=== PATIENT | male | born 1995 | race Caucasian/White ===

== ENCOUNTER 2016-10-12 06:28 | Emergency (ER) | payer OTHER ==
[~2016-10-12] VITALS: Ht 190.5 cm; Wt 108.0 kg
[2016-10-12 06:34] VITALS: BP 142/94; PULSE 72; RESP 16; TEMP 98.2; O2SAT 98
[2016-10-12] MEDS ORDERED: DOXY100C PO (08:03)
--- NOTE | 2016-10-12 08:03 | PD ---
HPI Chief Complaint: Skin Problem Time Seen by Provider: 07:35 Travel History International Travel<30 days: No Contact w/Intl Traveler<30days: No Traveled to known affect area: No History of Present Illness HPI Patient is a 21-year-old male who presents emergency department for evaluation of right wrist swelling and pain. Patient states he noticed this a few weeks ago is been waxing and waning in size and pain. 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 Does not recall taking any tics or spiders offered him. Denies any systemic symptoms denies any fevers. Denies any IV drug use. PFSH Past Medical History Asthma: Yes Tetanus Vaccination: Unknown Influenza Vaccination: No Past Surgical History Surgical History: No Previous Surgery Social History Alcohol Use: Yes (2-3 TIMES WEEKLY) Tobacco Use: Yes (CHEWING TOBACCO) Substance Use: No Allergies-Medications (Allergen,Severity, Reaction): Coded Allergies: No Known Allergies (Unverified , 10/12/16) Reported Meds & Prescriptions Reported Meds & Active Scripts Active Doxycycline Hyclate 100 Mg Cap 100 Mg PO BID 10 Days Review of Systems Except as stated in HPI: all other systems reviewed are Neg Physical Exam Narrative GENERAL: Well-nourished, well-developed patient. No obvious distress. SKIN: There is a small furuncle on the radial aspect of the right wrist. Minimal surrounding cellulitis. There may be some small central clearing HEAD: Normocephalic. EYES: No scleral icterus. No injection or drainage. NECK: Supple, trachea midline. No JVD or lymphadenopathy. CARDIOVASCULAR: Regular rate and rhythm without murmurs, gallops, or rubs. RESPIRATORY: Breath sounds equal bilaterally. No accessory muscle use. GASTROINTESTINAL: Abdomen soft, non-tender, nondistended. MUSCULOSKELETAL: No cyanosis, or edema. BACK: Nontender without obvious deformity. No CVA tenderness. Data Data Last Documented VS Vital Signs Date Time Temp Pulse Resp B/P Pulse Ox O2 Delivery O2 Flow Rate FiO2 10/12/16 06:34 98.2 72 16 142/94 98 Orders Ed Poc Ultrasound (10/12/16 ) [facility] Medical Decision Making Medical Screen Exam Complete: Yes Emergency Medical Condition: Yes Differential Diagnosis Winds exposure, cellulitis, abscess, Narrative Course Patient roomed in emergency department, there may be some small central clearing to his cellulitis is maybe some small tension placed by the abscess itself. However will be placed on doxycycline for coverage for possible Lyme's disease. Discussed signs that would be prompting him to come back to emergency department. The much more likely is that this is a prolonged MRSA infection and doxycycline would be a fair choice here as well. Discussed with the patient need follow-up with primary care physician further testing and returned ED criteria. Procedures Procedure Narrative Bedside ultrasound soft tissue: There is some minimal subcutaneous fluid collection which is not amenable to ER drainage as is too small. Cobblestoning seen. Diagnosis Primary Impression: Abscess Med/Other Pt SpecificInfo: Prescription(s) given Scripts Doxycycline Hyclate 100 Mg [id number] Mg PO BID 10 Days Ref 0 Prov:Chad Vieira MD 10/12/16 Disposition: 01 DISCHARGE HOME Condition: Stable Chad Vieira MD Oct 12, 2016 08:03
== END 2016-10-12 08:09 | disposition home or self-care (01) ==
LOC: NEPC 06:28
DX: L02.413 Cutaneous abscess of right upper limb (principal)
CPT/HCPCS: 99284